=== PATIENT | female | born 1990 | race Caucasian/White ===

== ENCOUNTER → 2023-12-15 13:06 | Outpatient (REF) | payer BC, SELFPAY | LOC: HWRAD 13:06 | PROVIDERS: ATTENDING PHYSICIAN Obstetrics & Gynecology; FAMILY PHYSICIAN Family Medicine | DX: N92.1 Excessive and frequent menstruation with irregular cycle (principal) | CPT/HCPCS: 76830; 76856 ==

== ENCOUNTER → 2024-02-24 14:35 | Outpatient (REF) | payer BC, SELFPAY | LOC: HWRAD 14:35 | PROVIDERS: ATTENDING PHYSICIAN Obstetrics & Gynecology; FAMILY PHYSICIAN Family Medicine | DX: N83.209 Unspecified ovarian cyst, unspecified side (principal) | CPT/HCPCS: 76830; 76856 ==

== ENCOUNTER → 2024-05-02 09:47 | Outpatient (REF) | payer BC, SELFPAY | LOC: WDC 09:47 | PROVIDERS: ATTENDING PHYSICIAN Nurse Practitioner Family; FAMILY PHYSICIAN Family Medicine | DX: N64.52 Nipple discharge (principal) | CPT/HCPCS: 76642; 77062; 77066 ==

== ENCOUNTER → 2024-05-11 13:34 | Outpatient (REF) | payer BC, SELFPAY | LOC: HWRAD 13:34 | PROVIDERS: ATTENDING PHYSICIAN Obstetrics & Gynecology; FAMILY PHYSICIAN Family Medicine | DX: N83.201 Unspecified ovarian cyst, right side (principal) | CPT/HCPCS: 76830; 76856 ==

== ENCOUNTER 2025-02-27 21:28 | Emergency (ER) | payer BC, SELFPAY ==
[2025-02-27 21:31] VITALS: BP 114/75
[2025-02-27 21:51] LABS: Hematocrit 36.0 % (37.0-47.0); Hemoglobin 12.2 g/dL (12.0-16.0); Mean Corp Hgb Conc. 33.9 g/dL (33.0-37.0); Mean Corpuscular Volume 85.7 fL (81.0-99.0); Nucleated Red Blood Cells % 0 %; Platelet Count 302 10^3/uL (130-400); Red Cell Dist. Width 11.8 % (11.5-14.5)
[2025-02-27 22:11] LABS: HCG, Serum Qualitative Screen Negative
[2025-02-27 22:13] LABS: ALT (SGPT) 15 U/L (0-35); AST (SGOT) 21 U/L (14-36); Albumin 4.4 g/dl (3.5-5.0); Alkaline Phosphatase 60 U/L (38-126); Blood Urea Nitrogen 17 mg/dl (7-17); Calcium 9.5 mg/dl (8.4-10.2); Carbon Dioxide 28 mmol/L (22-30); Chloride 105 mmol/L (98-107); Glucose 91 mg/dl (70-99); Potassium 4.3 mmol/L (3.5-5.1); Sodium 137 mmol/L (135-145); Total Protein 7.5 g/dl (6.3-8.2); eGFR > 60.00
[2025-02-27 22:16] VITALS: BMI 20.5
[2025-02-27 22:18] LABS: Troponin I < 0.012 ng/ml
[2025-02-27 22:21] VITALS: BP 112/76
[2025-02-27 23:00] VITALS: BP 109/73
[2025-02-27 23:44] LABS: D-Dimer 0.31 ug/mlFEU (0.00-0.50)
[2025-02-27] MEDS: DUONEB 3 ML INH (23:52)
[2025-02-28] VITALS: BP 102/63
[2025-02-28 01:00] VITALS: BP 103/66
--- NOTE | 2025-02-28 01:33 | ED.GENMED ---
History of Present Illness
General
Chief Complaint: Breathing Problem
Source: patient
Time Seen by Provider: 02/27/25 22:37
History of Present Illness
History of Present Illness:
Note:
CHIEF COMPLAINT(S)
Cough and chest pain.
HISTORY OF PRESENT ILLNESS
The patient is a 34-year-old female with a complex pulmonary history, including a diagnosis of aspergillosis, who presents with a productive cough and chest pain since last Wednesday. She reports a low-grade fever and increased mucus production. The
patient has a history of recurrent pneumonia and is prone to pulmonary infections. Her condition has been managed with regular follow-ups at [facility] pulmonary infectious disease department.
Her medical history includes coughing up blood and chest pain in the past, which led to a cavitary lung lesion due to aspergillosis. Following prolonged treatment, the cavitation has resolved. The patient experiences intermittent 'fleeting
infiltrates' on imaging, which her infectious disease physician considers non-threatening given her stable status. The infectious disease doctor believes there is no active fungal infection currently, but pulmonology continues to observe these
findings.
Despite her complex history, the patient reports that since the resolution of the cavitation, she has been functioning well, with no overuse of her albuterol until recently. The patient recently began feeling unwell after attending an event with her
child and developed her current symptoms.
On Wednesday, the patient started a course of Cefdinir (incorrectly transcribed as 'septin') upon her asthma specialists recommendation due to lack of response to previous antibiotic treatment with Amoxicillin-Clavulanate (Augmentin). Since starting
Cefdinir, she reports some improvement, although her cough has worsened.
The patient was seen by her asthma specialist who recommended avoiding steroid use unless necessary. Currently, she reports feeling worse, with less wheezing but experiencing low-pitched breathing sounds. There is also a recurrence of a low-grade
fever, peaking at 100.4�F, now resolved, and reports significant pleuritic chest pain similar to her February hospitalization. She has been using albuterol every four hours with minimal relief.
Today, she experienced additional chest pain, increased fever, and difficulty taking deep breaths. She visited an urgent care, where she was noted to sound 'junky' but stable enough to avoid immediate steroid treatment. Her plan at urgent care
included starting beclomethasone, and she took one dose prior to this visit.
PHYSICAL EXAM
General: Alert, in slight distress due to coughing.
Skin: Warm, dry.
Head: Normocephalic, atraumatic.
Eye, Ears, Nose, Mouth, and Throat: Oral mucosa moist.
Neck: Supple, trachea midline.
Cardiovascular: Normal peripheral perfusion, No edema, Heart rate regular without murmurs.
Respiratory: Intermittent wheezes bilaterally, normal air movement noticed on auscultation.
Gastrointestinal: Abdomen nondistended.
Back: Normal range of motion, Normal alignment.
Musculoskeletal: Normal range of motion, normal strength.
Neurological: Alert and oriented to person, place, time, and situation, No focal neurological deficit observed.
Psychiatric: Cooperative, appropriate mood & affect.
PROBLEM LIST
Acute:
1. Productive cough
2. Pleuritic chest pain
3. Low-grade fever
4. Respiratory distress with wheezing
Chronic:
1. Aspergillosis of the lungs
2. Recurrent pneumonia
3. Asthma
PLAN
1. Review the radiologist�s assessment of recent chest X-ray findings.
2. Perform D-dimer testing to further assess for potential thromboembolism given the clinical picture.
3. Consider high-resolution computed tomography (HRCT) of the chest if indicated by clinical progression or abnormal D-dimer.
4. Monitor for any requirement of steroid intervention depending on clinical status change.
5. Discuss the need for potential switch or escalation in antibiotic therapy if the response to Cefdinir remains suboptimal.
6. Evaluate blood work, with a focus on white cell count which is noted to be elevated at 15,500-16,000.
DIFFERENTIAL DIAGNOSIS
The differential diagnosis includes, in no particular order and is not limited to:
1. Bacterial pneumonia
2. Viral bronchitis
3. Aspergillosis exacerbation
4. Asthma exacerbation
5. Pulmonary embolism
6. Pleural effusion
7. Chronic obstructive pulmonary disease flare
8. Interstitial lung disease
9. Allergic bronchopulmonary aspergillosis
10. Non-resolving pneumonia
EKG
My independent EKG interpretation is:
- Rhythm: Normal sinus rhythm
- Heart Rate: 83 bpm
- [place]: Normal axis
- Intervals: Normal
- Abnormalities: Non-specific ST abnormalities
CARE-UPDATE
02/28/25 - 01:35
Patient maintaining full SpO2 at 99%, exhibits no respiratory distress, and is moving air effectively. Respiratory rate and heart rate remain within normal limits. D-dimer test returned negative, indicating low likelihood of thrombotic event.
Disposition:
SUMMARY OF ENCOUNTER
The patient is a 34-year-old female with a complex pulmonary history, including previous aspergillosis. She presents with a persistent productive cough, pleuritic chest pain, and low-grade fever. A comprehensive workup revealed leukocytosis on CBC
at 15,000, with chemistry and troponin levels being normal. A D-dimer test was negative, suggesting a low likelihood of thrombotic events. A CT scan interpreted by radiology showed ground-glass opacities in the right lung base and a 1x1 cm
non-cavitary nodule in the right upper lobe, suggesting potential infection. The patient was reassessed and appears well. Azithromycin was administered and the plan includes continuing her with Cefdinir and adding azithromycin to the regimen. The
patients condition was comprehensively discussed, and she will follow up with outpatient infectious disease specialists and pulmonologists. Ipratropium will be added to her nebulizer regimen at home for symptom relief, as she responded well
previously.
PLAN
Continue with the current regimen of Cefdinir and initiate azithromycin. Add ipratropium to the nebulizer treatment at home. Instructed to return to the ED if symptoms worsen.
INDEPENDENT REVIEW OF LABS AND INTERPRETATION OF TESTS
- My independent review of CBC indicates leukocytosis at 15,000.
- My independent review of chemistry is within normal limits.
- My independent review of troponin is normal.
- My independent review of D-dimer is negative.
My independent CT scan interpretation shows ground-glass opacities in the right lung base and a 1x1 cm non-cavitary nodule in the right upper lobe, without cavitary lesions.
PATIENT EDUCATION AND COUNSELING
The importance of returning to the emergency department if symptoms worsen was emphasized. The patient was counseled regarding the potential diagnoses, including bacterial or viral pneumonia, fungal infection, and the history of intermittent
infiltrative processes.
FOLLOW-UP INSTRUCTIONS
The patient is advised to follow up with her outpatient infectious disease specialist and jet inspector for further evaluation and management.
MEDICATION RECONCILIATION
- Continued prescription for Cefdinir.
- Prescribed azithromycin.
- Addition of ipratropium to nebulizer treatment.
MEDICAL DECISION MAKING
- Number and Complexity of Problems Addressed: Chronic conditions affecting care: Aspergillosis of the lungs, recurrent pneumonia, asthma. Differential diagnosis considerations include bacterial pneumonia, viral bronchitis, aspergillosis
exacerbation, asthma exacerbation, pulmonary embolism, pleural effusion, chronic obstructive pulmonary disease flare, interstitial lung disease, allergic bronchopulmonary aspergillosis, non-resolving pneumonia.
- Data:
Category 1:
- My independent interpretation of CBC exhibiting leukocytosis.
- CT scan independently reviewed by me showing ground-glass opacities and nodule.
Category 3:
- Management of patients care discussed with outpatient pulmonology and infectious disease specialists.
-Risk:
Prescription medication prescribed includes Cefdinir and azithromycin. Consideration of Admission/Observation: Escalation of care including admission/observation was considered given the complexity and risk of the patients presenting complaint, exam
findings, and/or their underlying comorbidities. However, ultimately I feel the patient is safe for outpatient management with close follow-up. Reasoning: Work-up reassuring, does not reveal any acute life/organ-threatening processes, patients
symptoms well controlled upon reevaluation, reexamination is reassuring, vitals are stable, patient agreeable with discharge, reliable for follow-up.
DIAGNOSIS
- Pneumonia, unspecified organism (ICD-10: J18.9)
- Asthma, uncomplicated (ICD-10: J45.909)
- Pulmonary aspergillosis (ICD-10: B44.9)
Past History
Past History
ED Past Medical History: Asthma, GERD, Psychiatric (Anxiety, OCD) and Other (Aspergillus)
ED Past Surgical History: None
Social History
Tobacco: Non-smoker
Alcohol: None
Drug: None
Personal:
Living: with family
Employment: Employed
Family History
Family History: Asthma
Phy Exam
Physical Exam
Physical Exam:
.
Course
Orders/Labs/Results
Orders:
Orders
02/27/25 21:33
Electrocardiogram (*1) Urgent
Reason for Study: Other
Other Reason for Exam: Respiratory Distress
Cardiac Monitoring- Treatment ONCE
EKG- Treatment ONCE
IV Insert/Care/Rem.- Treatment PRN
Test Result ONCE
CR Chest - 2 Views Urgent
Comment:
Reason For Exam: respiratory distress
O2 Therapy [RESP] Urgent
Titrate/Wean O2 to maintain O2 sat greater than (%): 93
Special Instructions: TO MAINTAIN CONTINUOUS O2 SATS >/= 93%
Pulse Ox/cont/shift [RESP] Urgent
Quantity: 1
Special Instructions: continuous pulse ox
02/27/25 21:37
Complete Blood Count/With Diff Urgent
Comprehensive Metabolic Panel Urgent
HCG, Serum Qualitative Screen Urgent
Comment: Notify provider if positive test present
Troponin I Urgent
02/27/25 23:20
Blood Culture Q20M
ROMY Source: Blood/Venous
Specimen Description:
Comment: Urgent from separate sites. If patient screens positive for possible sepsis
02/27/25 23:22
D-Dimer Urgent
Lactic Acid Q4H
Comment: ON ICE, CANCEL 2ND ORDER IF FIRST LACTIC ACID LEVEL <2
Blood Culture Q20M
ROMY Source: Blood/Venous
Specimen Description:
Comment: Urgent from separate sites. If patient screens positive for possible sepsis
02/27/25 23:46
Ipratropium/Albuterol Sulfate [Duoneb] 3 ml INH R NOW STA
02/28/25
CT Chest With Iv Contrast Urgent
Reason For Exam: R cp, cough, WBC, h/o fungal pneumonia
Abnormal Lab Results
02/27/25
21:37
WBC 15.2 H 10^3/uL
(4.8-10.8)
Hct 36.0 L %
(37.0-47.0)
Abs Immat Gran (auto) 0.1 H 10^3/uL
(0-0.05)
Absolute Neuts (auto) 11.6 H 10^3/uL
(1.4-6.5)
Absolute Monos (auto) 1.0 H 10^3/uL
(0.1-0.6)
Neutrophils % 76.3 H %
(42.2-75.2)
Lymphocytes % 15.8 L %
(20.5-51.1)
Creatinine 0.5 L mg/dL
(0.6-1.0)
02/27/25 21:37
02/27/25 21:37
Vital Signs
Initial and Last Documented VS:
Initial Vital Signs
Temp Pulse Resp BP Pulse Ox
99.2 F 93 19 114/75 100
02/27/25 21:31 02/27/25 21:31 02/27/25 21:31 02/27/25 21:31 02/27/25 21:31
Last Documented Vital Signs
Temp Pulse Resp BP Pulse Ox
99.1 F 85 15 103/66 98
02/27/25 22:21 02/28/25 01:45 02/27/25 22:21 02/28/25 01:00 02/28/25 01:35
*Pulse Oximetry
SaO2: 98
Oxygen Mode of Delivery: Room air
Patient hypoxic: no
*Critical Care Note
Total Time (30-74mins, 75-104mins- exclusive of procedures): Not Applicable
ED Attending Note
-
Portions of this chart may have been created with voice recognition software.� Occasional wrong word or��sound alike� substitutions may have occurred due to the inherent limitations of voice recognition software.
Discharge Plan
Departure
Patient Disposition: Home (Routine Discharge)
Date of Disposition: 02/28/25
Time of Disposition: 01:40
Patient with high blood pressure during this ER visit?: No
Discharge Problem:
Pneumonia
Instructions: Pneumonia in adults
Prescriptions:
New
ipratropium bromide 0.02 % solution
2.5 ml inhalation Q6H PRN (Reason: shortness of breath or wheezing) Qty: 75 0RF
No Action
montelukast [Singulair] 10 mg Tablet
10 mg PO HS
prenat.vits,xavier,xae-xjdf-hzvdp Tablet
1 tab PO DAILY
fluticasone propion-salmeterol [Advair HFA] 115-21 mcg/actuation Hfa Aerosol Inhaler
2 puff INHALATION BID
levocetirizine 5 mg Tablet
5 mg PO QPM
famotidine 20 mg Tablet
20 mg PO DAILY
Probiotic
1 tab PO Daily
albuterol
2 puff inhalation PRN PRN (Reason: rescue inhaler)
ibuprofen 600 mg Tablet
600 mg PO Q6HPRN PRN (Reason: moderate pain/cramps) Qty: 0 0RF
acetaminophen 325 mg Tablet
650 mg PO Q4HPRN PRN (Reason: mild pain) Qty: 0 0RF
amoxicillin-pot clavulanate 875-125 mg tablet
1 tab PO Q12H 21 Days Qty: 42 0RF
prednisone 20 mg tablet
40 mg PO DAILY Qty: 6 0RF
benzonatate 200 mg capsule
200 mg PO TID PRN (Reason: Cough) Qty: 20 0RF
lorazepam [Ativan] 1 mg tablet
1 mg PO TID PRN (Reason: anxiety) Qty: 20 0RF
medroxyprogesterone [Provera] 10 mg tablet
10 mg PO DAILY Qty: 10 0RF
Referrals:
Abby Edwards DO [Family Provider, Family Practice]
Activity Restrictions/Additional Instructions:
Please connect with your jet inspector and infectious disease doctor tomorrow. Please use albuterol and ipratropium as needed as discussed. Please return immediately for fevers, worsening symptoms, shortness of breath, coughing up blood or any
other concerns. Continue your Ceftin and azithromycin as prescribed.
Interventions
Interventions:
*Risk Screen - Suicide Last Done: 02/27/25 21:31
*General Assessment Last Done: 02/27/25 22:17
*Neglect/Abuse Screening Last Done: 02/27/25 21:31
*ED- Fall Risk Assessment Last Done: 02/27/25 22:17
*ED COVID-19 Vaccine History Last Done: 02/27/25 22:17
*Nursing Disposition Last Done: 02/28/25 01:55
ED- Cardiac Assessment Last Done: 02/27/25 22:22
ED- Pulmonary Assessment Last Done: 02/27/25 22:22
Discharge Date and Time
Discharge Date/Time: 02/28/25 02:01
Print Language: EQUATORIAL GUINEAN
== END 2025-02-28 02:01 | disposition home or self-care (01) ==
LOC: EMR 21:28
PROVIDERS: EMERGENCY PHYSICIAN Emergency Medicine; FAMILY PHYSICIAN Family Medicine
DX: J18.9 Pneumonia, unspecified organism (principal); B44.9 Aspergillosis, unspecified; J45.909 Unspecified asthma, uncomplicated; K21.9 Gastro-esophageal reflux disease without esophagitis; F42.9 Obsessive-compulsive disorder, unspecified; F41.9 Anxiety disorder, unspecified; Z87.01 Personal history of pneumonia (recurrent); Z88.8 Allergy status to other drugs, medicaments and biological substances; Z91.018 Allergy to other foods; Z91.040 Latex allergy status
CPT/HCPCS: 99285; 94640; 71046; 71260; 80053; 83605; 84484; 84703; 85025; 85379; 87040; 93005; Q9967